=== PATIENT | female | born 1970 | race Caucasian/White ===

== ENCOUNTER 2018-03-02 23:53 | Emergency (ER) | payer BC ==
[~2018-03-02] VITALS: Ht 160 cm; Wt 58.6 kg
[~2018-03-02 23:53] MED LIST: ADVIN10/60 INH; ALBUAER19 INH; CLON1TAB PO; ENOX60IN SQ; LAMO100T PO; VENL100T2 PO; WARF5TAB90 PO
[2018-03-03] VITALS: BP 138/78; PULSE 90; TEMP 36.6; O2SAT 97; Ht 160 cm; Wt 58.6 kg
--- NOTE | 2018-03-03 00:29 | EMERGENCY ROOM VISIT NOTE ---
History Report prepared by Tatiana: Shlomo Melgar Under the Supervision of: Dr. Anjana Valentino D.O. First contact with patient: 00:04 Chief Complaint: OTHER COMPLAINT Stated Complaint: MEDICAL CLEARANCE FOR [facility] History of Present Illness The patient is a 47 year old female who presents to the Emergency Room with complaints of a constant toshia stasis ulcer to her left ankle beginning four years ago. The patient states she travels to [place] bi-weekly for her ulcer, and her Unaboot dressing is changed weekly. She reports she changes her dressing at home the weeks she does not go to [place]. The patient notes she takes 6mg of Coumadin for her history of DVTs and other blood clots. She states her last level was check three weeks ago. The patient reports she is in the ED because she called the police. She notes she thought someone broke into her house. The patient states the police arrested her because she sped off in her car, and they thought she was drinking and driving. The patient denies a history of diabetes and alcohol consumption. Correction officers note the patient needs medical clearance for her toshia stasis ulcer so she may be discharged to [facility]. Source of History: patient Onset: four years ago Position: ankle (left) Quality: other (toshia stasis ulcer) Timing: constant Review of Systems See HPI for pertinent positives & negatives. A total of 10 systems reviewed and were otherwise negative. Past Medical & Surgical Medical Problems: (1) Venous stasis ulcer of ankle Family History Patient reports no known family medical history. Social History Smoking Status: Current Every Day Smoker Marital Status: other (legally ) Occupation Status: student Current/Historical Medications Scheduled Clonazepam (Klonopin), 1 MG PO BID Enoxaparin (Lovenox), 60 MG SQ Q12H Fluticasone Prop/Salmeterol (Advair Diskus 100/50 60 Dose), 1 PUFF INH BID Lamotrigine (Lamictal), 100 MG PO BID Venlafaxine Hcl (Effexor), 100 MG PO DAILY Warfarin Sodium (Coumadin), 5 MG PO DAILY Scheduled PRN Albuterol Inhaler (Ventolin Inhaler), 2 PUFFS INH QID PRN for Wheezing Allergies Coded Allergies: Codeine (Unverified Allergy, Mild, RASH, 09/11/14) Penicillins (Verified Allergy, Unknown, 09/11/14) Sulfamethoxazole w/Trimethoprim (Verified Allergy, Unknown, RASH, 09/11/14 ) Latex1 -Allergic Contact Dermititis (Unverified Adverse Reaction, Intermediate, RASH, 09/11/14) ITCHING NSAIDs (Unverified Adverse Reaction, Intermediate, CONTRAINDICATED D/T COUMADIN, 09/11/14) Tramadol (Unverified Adverse Reaction, Intermediate, GI SYMPTOMS, 09/11/14 ) Uncoded Allergies: XEROFORM (Allergy, Mild, RASH, 03/29/14) Physical Exam Vital Signs Date Time Temp Pulse Resp B/P (MAP) Pulse Ox O2 Delivery O2 Flow Rate FiO2 03/03/18 00:00 36.6 90 18 138/78 97 Room Air Physical Exam HEENT: Head - normocephalic and atraumatic Pupils are equal, round, and reactive to light. Extraocular eye muscles are intact, and sclera are anicteric. Nose - moist nasal mucosa without discharge. Mouth - moist buccal mucosa. Oropharynx is nonerythematous and there is no tonsillar exudate or edema noted. Neck: Supple; no JVD, nuchal rigidity, cervical lymphadenopathy, or auscultated bruits. Heart: Regular rate and rhythm. There is a normal S1 and S2 with no murmurs, clicks, or gallops appreciated. Lungs: Clear to auscultation bilaterally with no wheezes, rales, or rhonchi. Abdomen: Soft, completely nontender, nondistended, with good bowel sounds. There are no palpable pulsatile masses or hepatosplenomegaly. There is no guarding, rigidity, or rebound noted. Extremities: No evidence of cyanosis, clubbing, or edema. There are easily palpable peripheral pulses. Unaboot on the left leg. Skin: warm and dry with good turgor and no rashes. Medical Decision & Procedures ED Course 0011: Past medical records reviewed. The patient was evaluated in room C03. A complete history and physical exam was performed. I discussed the need for the patient's bandage to be changed. I explained to the patient and the guards that it is okay if her dressing is not changed for the next few days. I informed them I would change it if I was able to obtain the necessary supplies from wound care. Given the time of day, I am not able to obtain the necessary wound care material. I discussed the discharge instructions with the patient and guards. They verbalized complete agreement. The patient was discharged. Medical Decision This is a 47-year-old female patient who was brought to the emergency department by corrections officers for medical clearance so the patient could be incarcerated. The patient has an Unna boot on the left ankle for treatment of a venous stasis ulcer. This is Unna boot has been changed on a weekly basis over the past 2 years and is slowly healing according to the patient. This Unna boot is due to be changed tomorrow. I made it clear that the patient would require this dressing to be changed within the next 48-72 hours. The guards did not think that she would be incarcerated for that long. They are to bring the patient back to the emergency department if she develops unbearable pain or increased drainage from the wound. Medication Reconcilliation Current Medication List: was personally reviewed by me Blood Pressure Screening Patient's blood pressure: Elevated blood pressure Blood pressure disposition: Elevated BP felt to be situational Impression Primary Impression: Medical clearance for incarceration Scribe Attestation The scribe's documentation has been prepared under my direction and personally reviewed by me in its entirety. I confirm that the note above accurately reflects all work, treatment, procedures, and medical decision making performed by me. Departure Information Dispostion Other ([facility]) Referrals No Doctor, Assigned (PCP) Forms HOME CARE DOCUMENTATION FORM, IMPORTANT VISIT INFORMATION, WORK / SCHOOL INSTRUCTIONS Patient Instructions My [facility] Additional Instructions This patient will need to have the dressing (Unaboot) on her left ankle changed at wound care in the next 2-3 days.
== END 2018-03-03 00:29 | disposition home or self-care (01) ==
LOC: C.EDB 23:54 → C.EDC 03-03 00:29
DX: Z02.2 Encounter for examination for admission to residential institution (principal); I83.023 Varicose veins of left lower extremity with ulcer of ankle; F17.200 Nicotine dependence, unspecified, uncomplicated; Z79.01 Long term (current) use of anticoagulants; Z88.6 Allergy status to analgesic agent; Z88.0 Allergy status to penicillin; Z88.2 Allergy status to sulfonamides; Z91.040 Latex allergy status; Z88.5 Allergy status to narcotic agent; Z88.8 Allergy status to other drugs, medicaments and biological substances